=== PATIENT | female | born 2000 | race Asian ===

== ENCOUNTER 2019-07-04 14:59 | Emergency (ER) | payer OTHER ==
[~2019-07-04] VITALS: Ht 157.5 cm; Wt 49.0 kg
[2019-07-04 15:08] VITALS: Ht 157.5 cm; Wt 49.0 kg
[2019-07-04 16:24] LABS: microscopic required? NO
[2019-07-04 16:33] LABS: urine erythrocyte NEGATIVE (NEGATIVE)
[2019-07-04 16:34] LABS: BASOPHIL % 0.5 % (0-2); PLATELET COUNT 238 x10^3mcL (130-400)
[2019-07-04 16:36] LABS: CALCIUM 8.5 mg/dL (8.5-10.1); CARBON DIOXIDE 26.4 mmol/L (21-32); CHLORIDE SERUM 104 mmol/L (98-107); CREATININE SERUM 0.7 mg/dL (0.6-1.0); GFR1 > 60 mL/min; GLUCOSE SERUM 119 mg/dL (74-106); POTASSIUM SERUM 3.9 mmol/L (3.5-5.1); SODIUM SERUM 140 mmol/L (136-145)
[2019-07-04 16:42] LABS: ALBUMIN 4.1 g/dL (3.4-5.0); ALKALINE PHOSPHATASE 67 U/L (46-116); ALT/SGPT 20 U/L (14-59); AST/SGOT 16 U/L (15-37); BILIRUBIN TOTAL 0.9 mg/dL (0.20-1.00); HDL CHOLESTEROL 56 mg/dL (40-60); LIPASE 117 IU/L (73-393); TOTAL PROTEIN, SERUM 7.3 g/dL (6.4-8.2)
[2019-07-04 16:42] LABS: AMPHETAMINE QUAL UR NONE DETECTED (See below)
[2019-07-04 16:43] LABS: CHOLESTEROL 117 mg/dL (<200); CHOLESTEROL/HDL RATIO 2.1; TRIGLYCERIDES 23 mg/dL (<150)
[2019-07-04 16:52] LABS: T3 TOTAL 1.17 ng/mL
[2019-07-04 17:08] LABS: FREE T4 1.13 ng/dL (0.76-1.46); FREE THYROXINE INDEX 3.5 ug/dL (1.4-4.5); T4(THYROXINE) 9.8 ug/dL (4.7-13.3)
[2019-07-04 18:01] VITALS: BP 118/70
== END 2019-07-04 18:01 | disposition home or self-care (01) ==
LOC: ED 14:59
PROVIDERS: Specialist
DX: F41.9 Anxiety disorder, unspecified (principal); F43.9 Reaction to severe stress, unspecified; R07.89 Other chest pain; Z88.0 Allergy status to penicillin
CPT/HCPCS: 83880; 84439; J7030